=== PATIENT | male | born 1965 | race African-American/Black ===

== ENCOUNTER 2016-10-27 12:46 | Inpatient (IN) | payer MEDICAID ==
[~2016-10-27] VITALS: Ht 175.3 cm; Wt 102.1 kg
[2016-10-27 13:19] LABS: Basophils # (auto) 0 uL; Basophils % (auto) 0.6 % (0.0-2.0); DEFINITIVE VIEW TRANSMISSION; Eosinophils # (auto) 0.1 uL; Eosinophils % (auto) 1.3 % (0.0-7.0); Hematocrit 44.8 % (41.0-53.0); Hemoglobin 13.9 g/dL (13.5-17.5); Lymphocytes # (auto) 1.2 uL; Lymphocytes % (auto) 22.3 % (10.0-50.0); Mean Corpuscular Hemoglobin 28.6 pg (28.0-32.0); Mean Corpuscular Hgb Conc. 31.1 g/dL (32.0-36.0); Mean Platelet Volume 8.7 fL (7.4-10.4); Monocytes # (auto) 0.5 uL; Monocytes % (auto) 8.7 % (0.0-12.0); Neutrophils # (auto) 3.7 uL; Neutrophils % (auto) 67.1 % (37.0-80.0); Platelet Count (auto) 252 10^3/uL (140-450); Red Cell Distribution Width 14.1 % (11.6-16.0); White Blood Cell 5.6 10^3/uL (4.4-10.8)
[2016-10-27] MEDS ORDERED: ASPirin 81 mg TAB PO ONE ×2 (13:30→18:00)
[2016-10-27 13:42] LABS: Albumin 3.5 g/dL (3.4-5.0); BUN/Creatinine Ratio 10.6; Bilirubin, Total 0.7 mg/dL (0.2-1.0); Calcium 8.2 mg/dL (8.5-10.1); Magnesium 2.4 mg/dL (1.6-2.6); Potassium 3.9 mmol/L (3.5-5.1); Total Protein 6.6 g/dL (6.4-8.2)
[2016-10-27 13:52] LABS: INR 0.98 (0.9-1.15); Prothrombin Time 10.1 sec (9.37-12.3)
[2016-10-27] MEDS ORDERED: IODIXANOL 320MG/ML 100ML BTL IV ONE (14:19)
[2016-10-27 14:51] LABS: B-Type Natriuretic Peptide 480.93 pg/mL (0-100); Temperature: 21.9 C (20.0-25.0)
[2016-10-27] MEDS ORDERED: ALBUTEROL SULF 2.5 MG/0.5ML(0.5%) NEB SOLN HHN STA (16:24)
[2016-10-27] MEDS ORDERED: IPRATROPIUM BROM 0.5 MG/2.5ML INH SOL NEB ONE (16:30)
[2016-10-27] MEDS ORDERED: MORPHINE SULF INJ 2 MG/ML SYRINGE 1ML IV PRN (18:00)
[2016-10-27] MEDS ORDERED: amLODIPine BESYLATE 5 MG TAB PO ONE (18:00)
[2016-10-27] MEDS ORDERED: NITROGLYCERIN 0.4 MG SL TAB SL PRN (18:00)
[2016-10-27] MEDS ORDERED: hydrALAZINE HCL 20 MG/ML VL IV PRN (18:00)
[2016-10-27] MEDS ORDERED: FUROSEMIDE 40 MG/4 ML VIAL IV ONE (18:00)
[2016-10-27] MEDS ORDERED: ONDANSETRON HCL 4 MG/2 ML VIAL IV PRN (18:00)
[2016-10-27] MEDS ORDERED: ACETAMINOPHEN 500 MG TAB PO PRN (18:00)
[2016-10-27] MEDS: HYDROcodone-ACET 5/325MG TAB PO PRN (20:22)
[2016-10-27 21:00] VITALS: BP 114/51
[2016-10-27 21:13] VITALS: BP 114/51
[2016-10-27] MEDS ORDERED: ATORVASTATIN 20 MG TAB PO SCH (22:00)
[2016-10-27 23:40] VITALS: BP 108/59
[2016-10-28 04:47] VITALS: BP 99/64
[2016-10-28 05:39] LABS: BUN/Creatinine Ratio 12.5; Calcium 8.6 mg/dL (8.5-10.1); Potassium 3.9 mmol/L (3.5-5.1)
[2016-10-28 06:00] LABS: B-Type Natriuretic Peptide 514.08 pg/mL (0-100)
[2016-10-28 06:50] VITALS: BP 92/64
[2016-10-28 09:04] VITALS: BP 92/64
[2016-10-28] MEDS ORDERED: amLODIPine BESYLATE 5 MG TAB PO SCH (10:00)
[2016-10-28] MEDS ORDERED: ASPirin 81 mg TAB PO SCH (10:00)
[2016-10-28 10:35] LABS: Urine Bilirubin Negative (Negative); Urine Blood Negative /uL (Negative); Urine Color Yellow (Yellow); Urine Ketone Negative (Negative); Urine Nitrite Negative (Negative); Urine RBC <1 /hpf (0 - 3); Urine Squamous Epithelial Cell FEW /hpf (<5); Urine pH 6.5 (5.0-8.0)
[2016-10-28 10:38] LABS: Urine Glucose 3+ mg/dL (Normal)
[2016-10-28] MEDS ORDERED: POTASSIUM CHL 20 Meq TABLET PO ONE (12:00)
[2016-10-28] MEDS ORDERED: FUROSEMIDE 40 MG TAB PO ONE (12:00)
[2016-10-28 13:00] VITALS: BP 105/58
[2016-10-28] MEDS: HYDROcodone-ACET 5/325MG TAB PO PRN (13:40)
[2016-10-28 16:51] VITALS: BP 106/56
[2016-10-29] MEDS ORDERED: FUROSEMIDE 40 MG TAB PO SCH (10:00)
[2016-10-29] MEDS ORDERED: POTASSIUM CHL 20 Meq TABLET PO SCH (10:00)
== END 2016-10-28 17:45 | disposition left against medical advice (07) | DRG 194 ==
LOC: ER 12:50 → TELE 12:51 → TELE-CENTR 19:48
PROVIDERS: ADMIT Internal Medicine; ATTEND Internal Medicine
DX: I13.0 Hypertensive heart and chronic kidney disease with heart failure and stage 1 through stage 4 chronic kidney disease, or unspecified chronic kidney disease (principal); N18.3 Chronic kidney disease, stage 3 (moderate); F17.210 Nicotine dependence, cigarettes, uncomplicated; Z53.21 Procedure and treatment not carried out due to patient leaving prior to being seen by health care provider; I50.31 Acute diastolic (congestive) heart failure; E66.9 Obesity, unspecified; Z68.33 Body mass index [BMI] 33.0-33.9, adult
CPT/HCPCS: 36415; 36600; 71010; 71275; 80048; 80053; 80061; 81001; 82805; 82962; 83735; 83880; 84484; 85025; 85379; 85610; 85730; 93005; 94644; 94761; 96374; Q9967

== ENCOUNTER 2016-11-30 13:18 | Emergency (ER) | payer MEDICAID ==
[~2016-11-30] VITALS: Ht 175.3 cm; Wt 97.5 kg
[2016-11-30 13:49] LABS: Basophils # (auto) 0 uL; Basophils % (auto) 0.6 % (0.0-2.0); DEFINITIVE VIEW TRANSMISSION; Eosinophils # (auto) 0 uL; Eosinophils % (auto) 0.8 % (0.0-7.0); Hematocrit 44.2 % (41.0-53.0); Hemoglobin 13.7 g/dL (13.5-17.5); Lymphocytes # (auto) 0.7 uL; Lymphocytes % (auto) 12.4 % (10.0-50.0); Mean Corpuscular Hemoglobin 28.1 pg (28.0-32.0); Mean Corpuscular Hgb Conc. 30.9 g/dL (32.0-36.0); Mean Corpuscular Volume 90.9 fL (80.0-100.0); Mean Platelet Volume 8.3 fL (7.4-10.4); Monocytes # (auto) 0.8 uL; Monocytes % (auto) 14.2 % (0.0-12.0); Neutrophils # (auto) 3.9 uL; Platelet Count (auto) 242 10^3/uL (140-450); Red Cell Distribution Width 13.8 % (11.6-16.0); White Blood Cell 5.5 10^3/uL (4.4-10.8)
[2016-11-30 14:22] LABS: Albumin 3.4 g/dL (3.4-5.0); BUN/Creatinine Ratio 11.2; Bilirubin, Total 0.8 mg/dL (0.2-1.0); Calcium 8.3 mg/dL (8.5-10.1); Magnesium 2.3 mg/dL (1.6-2.6); Potassium 4.2 mmol/L (3.5-5.1)
[2016-11-30] MEDS ORDERED: ALBUTEROL SULF 2.5 MG/0.5ML(0.5%) NEB SOLN HHN STA (14:50)
[2016-11-30 15:40] VITALS: BP 124/67
== END 2016-11-30 16:40 | disposition home or self-care (01) ==
LOC: ER 13:18
DX: J20.9 Acute bronchitis, unspecified (principal); I10 Essential (primary) hypertension; F17.210 Nicotine dependence, cigarettes, uncomplicated; F12.10 Cannabis abuse, uncomplicated; Z90.89 Acquired absence of other organs
CPT/HCPCS: 36415; 71020; 80053; 83605; 83735; 84484; 85025; 93005; 94644

== ENCOUNTER 2016-12-08 07:15 | Inpatient (IN) | payer MEDICAID ==
[~2016-12-08] VITALS: Ht 175.3 cm; Wt 104.5 kg
[2016-12-08] MEDS ORDERED: cefTRIAXone 1GM/50ML D5W 50 ML IV ONE (08:45)
[2016-12-08] MEDS ORDERED: ONDANSETRON HCL 4 MG/2 ML VIAL IV ONE (08:45)
[2016-12-08] MEDS ORDERED: methylPREDNISolone SOD SUCC 125 MG/2 ML VL IV ONE (08:45)
[2016-12-08] MEDS ORDERED: IPRATROPIUM BROM 0.5 MG/2.5ML INH SOL NEB ONE (08:45)
[2016-12-08] MEDS ORDERED: ALBUTEROL SULF 2.5 MG/0.5ML(0.5%) NEB SOLN NEB ONE (08:45)
[2016-12-08] MEDS ORDERED: MORPHINE SULFATE 4 MG/ML SYRG IV ONE (08:45)
[2016-12-08 08:54] LABS: Basophils # (auto) 0.1 uL; Basophils % (auto) 1.5 % (0.0-2.0); Eosinophils # (auto) 0.1 uL; Eosinophils % (auto) 1.2 % (0.0-7.0); Hematocrit 39.6 % (41.0-53.0); Lymphocytes # (auto) 1.5 uL; Lymphocytes % (auto) 24.5 % (10.0-50.0); Mean Corpuscular Hemoglobin 28.7 pg (28.0-32.0); Mean Corpuscular Hgb Conc. 32.9 g/dL (32.0-36.0); Mean Corpuscular Volume 87.3 fL (80.0-100.0); Mean Platelet Volume 8.9 fL (7.4-10.4); Monocytes # (auto) 0.7 uL; Monocytes % (auto) 10.9 % (0.0-12.0); Neutrophils # (auto) 3.9 uL; Neutrophils % (auto) 61.9 % (37.0-80.0); Platelet Count (auto) 356 10^3/uL (140-450); Red Cell Distribution Width 13.5 % (11.6-16.0); White Blood Cell 6.2 10^3/uL (4.4-10.8)
[2016-12-08 08:55] LABS: INR 1.08 (0.9-1.15); Partial Thromboplastin Time 25.1 sec (22.64-33.71); Prothrombin Time 11.1 sec (9.37-12.3)
[2016-12-08 09:07] LABS: Albumin 3.3 g/dL (3.4-5.0); Bilirubin, Total 0.8 mg/dL (0.2-1.0); Calcium 8.1 mg/dL (8.5-10.1); Potassium 5.1 mmol/L (3.5-5.1); Total Protein 6.9 g/dL (6.4-8.2)
[2016-12-08 09:18] LABS: Magnesium 2.2 mg/dL (1.6-2.6)
[2016-12-08 09:45] LABS: Temperature: 21.2 C (20.0-25.0)
[2016-12-08] MEDS ORDERED: ASPirin 81 mg TAB PO ONE (10:15)
[2016-12-08] MEDS ORDERED: FUROSEMIDE 40 MG/4 ML VIAL IV ONE (10:15)
[2016-12-08] MEDS ORDERED: NITROGLYCERIN 0.4 MG SL TAB SL PRN (14:15)
[2016-12-08] MEDS ORDERED: MORPHINE SULF INJ 2 MG/ML SYRINGE 1ML IV PRN (14:15)
[2016-12-08] MEDS: CARVEDILOL 3.125 MG TAB PO SCH ×2 (14:35→21:33)
[2016-12-08] MEDS ORDERED: FUROSEMIDE 100 MG/10ML VIAL IV ONE (19:30)
[2016-12-08] MEDS: IPRATROPIUM BROM 0.5 MG/2.5ML INH SOL NEB SCH (19:45)
[2016-12-08] MEDS: ALBUTEROL SULF 2.5 MG/0.5ML(0.5%) NEB SOLN NEB SCH (19:45)
[2016-12-08 20:22] VITALS: BP 95/51
[2016-12-08] MEDS: ACETAMINOPHEN 325 MG TAB PO PRN (21:00)
[2016-12-08] MEDS: ATORVASTATIN 20 MG TAB PO SCH (21:32)
[2016-12-08 22:00] VITALS: BP 108/70
[2016-12-09 05:00] VITALS: BP 117/76
[2016-12-09 06:30] LABS: BUN/Creatinine Ratio 23.8; Calcium 8.4 mg/dL (8.5-10.1)
[2016-12-09] MEDS: IPRATROPIUM BROM 0.5 MG/2.5ML INH SOL NEB SCH ×3 (06:59→18:55)
[2016-12-09] MEDS: ALBUTEROL SULF 2.5 MG/0.5ML(0.5%) NEB SOLN NEB SCH ×3 (06:59→18:55)
[2016-12-09 09:00] VITALS: BP 95/68
[2016-12-09] MEDS: POTASSIUM CHL 20 Meq TABLET PO SCH (09:38)
[2016-12-09] MEDS: CARVEDILOL 3.125 MG TAB PO SCH ×2 (09:39→21:42)
[2016-12-09] MEDS: ASPirin 81 mg TAB PO SCH (09:40)
[2016-12-09] MEDS ORDERED: INFLUENZA QUAD 2016-2017 0.5 ML SYRG IM ONE (10:00)
[2016-12-09] MEDS ORDERED: PNEUMOCOCCAL VACC POLYS 25 MCG/0.5 ML VIAL IM ONE (10:00)
[2016-12-09] MEDS ORDERED: FUROSEMIDE 40 MG/4 ML VIAL IV SCH (10:00)
[2016-12-09 13:00] VITALS: BP 103/75
[2016-12-09 15:31] LABS: Urine Bilirubin Negative (Negative); Urine Blood Negative /uL (Negative); Urine Color Yellow (Yellow); Urine Glucose Normal (Normal); Urine Hyaline Cast FEW /lpf (0 - 2); Urine Ketone Negative (Negative); Urine Nitrite Negative (Negative); Urine RBC <1 /hpf (0 - 3); Urine Urobilinogen Normal (Negative)
[2016-12-09 17:00] VITALS: BP 104/62
[2016-12-09] MEDS: ATORVASTATIN 20 MG TAB PO SCH (21:41)
[2016-12-09 22:00] VITALS: BP 109/70
[2016-12-10] MEDS: ALBUTEROL SULF 2.5 MG/0.5ML(0.5%) NEB SOLN NEB SCH ×4 (00:13→18:40)
[2016-12-10] MEDS: IPRATROPIUM BROM 0.5 MG/2.5ML INH SOL NEB SCH ×4 (00:13→18:40)
[2016-12-10 05:00] VITALS: BP 111/73
[2016-12-10] MEDS: ACETAMINOPHEN 325 MG TAB PO PRN ×2 (08:25→21:35)
[2016-12-10 08:57] VITALS: BP 113/77
[2016-12-10] MEDS ORDERED: GIVE UN DILUTED IV ONE (09:15)
[2016-12-10] MEDS ORDERED: ADENOSINE IV ONE (09:15)
[2016-12-10] MEDS: FUROSEMIDE 40 MG TAB PO SCH (11:14)
[2016-12-10] MEDS: ASPirin 81 mg TAB PO SCH (11:14)
[2016-12-10] MEDS: CARVEDILOL 3.125 MG TAB PO SCH ×2 (11:14→21:36)
[2016-12-10] MEDS: POTASSIUM CHL 20 Meq TABLET PO SCH (11:14)
[2016-12-10 13:00] VITALS: BP 111/73
[2016-12-10 17:15] VITALS: BP 123/73
[2016-12-10 21:10] VITALS: BP 111/78
[2016-12-10] MEDS: ATORVASTATIN 20 MG TAB PO SCH (21:36)
[2016-12-10] MEDS: ACETYLCYSTEINE ORAL for CIN 20%(200MG/ML) 4ML PO SCH (22:32)
[2016-12-11 05:23] VITALS: BP 117/81
[2016-12-11] MEDS: SODIUM BICARBONATE 50ML VIAL 150 ML in D5W 5% 1,000 ML IV SCH ×2 (05:30→08:06)
[2016-12-11] MEDS: ALBUTEROL SULF 2.5 MG/0.5ML(0.5%) NEB SOLN NEB SCH ×2 (07:17→13:44)
[2016-12-11] MEDS: IPRATROPIUM BROM 0.5 MG/2.5ML INH SOL NEB SCH ×2 (07:17→13:44)
[2016-12-11 09:29] VITALS: BP 93/54
[2016-12-11] MEDS: ACETYLCYSTEINE ORAL for CIN 20%(200MG/ML) 4ML PO SCH (10:00)
[2016-12-11] MEDS: FUROSEMIDE 40 MG TAB PO SCH (10:00)
[2016-12-11] MEDS: CARVEDILOL 3.125 MG TAB PO SCH (10:00)
[2016-12-11] MEDS: ASPirin 81 mg TAB PO SCH (10:00)
[2016-12-11] MEDS: POTASSIUM CHL 20 Meq TABLET PO SCH (10:00)
[2016-12-11] MEDS ORDERED: LIDOCAINE 2%HCL (LOCAL ANESTH.) INJ 20ML MDV ONE (10:51)
[2016-12-11] MEDS ORDERED: ANGIOMAX 250 MG VIAL IV ONE (11:05)
[2016-12-11] MEDS ORDERED: MIDAZOLAM HCL 1MG/1ML-2 ML VIAL ONE (11:06)
[2016-12-11] MEDS ORDERED: fentaNYL CITRATE 100 MCG/2 ML VL ONE (11:06)
[2016-12-11] MEDS ORDERED: EPTIFIBATIDE INJ (2MG/ML) 10ML VIAL IV ONE (11:06)
[2016-12-11] MEDS ORDERED: SODIUM CHL 0.9% 0 ML ONE (11:06)
[2016-12-11] MEDS ORDERED: SODIUM CHLORIDE 0.9% 1,000 ML IV SCH (12:06)
[2016-12-11 13:00] VITALS: BP 139/98
[2016-12-11 15:52] VITALS: BP 107/70
== END 2016-12-11 16:42 | disposition home or self-care (01) | DRG 191 ==
LOC: ER 07:15 → TELE 07:16 → TELE-E-ADS 17:32 → TELE-CENTR 18:12
PROVIDERS: ADMIT Internal Medicine; ATTEND Internal Medicine
PROC: B2111ZZ Fluoroscopy of Multiple Coronary Arteries using Low Osmolar Contrast (ICD-10-PCS; principal; 2016-12-11)
PROC: 4A023N7 Measurement of Cardiac Sampling and Pressure, Left Heart, Percutaneous Approach (ICD-10-PCS; 2016-12-11)
PROC: B41F1ZZ Fluoroscopy of Right Lower Extremity Arteries using Low Osmolar Contrast (ICD-10-PCS; 2016-12-11)
DX: I50.43 Acute on chronic combined systolic (congestive) and diastolic (congestive) heart failure (principal); J44.0 Chronic obstructive pulmonary disease with (acute) lower respiratory infection; I42.9 Cardiomyopathy, unspecified; I15.9 Secondary hypertension, unspecified; J20.9 Acute bronchitis, unspecified; F17.210 Nicotine dependence, cigarettes, uncomplicated; E78.00 Pure hypercholesterolemia, unspecified; E66.01 Morbid (severe) obesity due to excess calories; N18.9 Chronic kidney disease, unspecified; I13.0 Hypertensive heart and chronic kidney disease with heart failure and stage 1 through stage 4 chronic kidney disease, or unspecified chronic kidney disease; J44.1 Chronic obstructive pulmonary disease with (acute) exacerbation; I25.10 Atherosclerotic heart disease of native coronary artery without angina pectoris; Z91.19 Patient's noncompliance with other medical treatment and regimen; Z68.34 Body mass index [BMI] 34.0-34.9, adult; Z90.89 Acquired absence of other organs; Z82.49 Family history of ischemic heart disease and other diseases of the circulatory system; Z23 Encounter for immunization
CPT/HCPCS: 93458; 96365; 96375; 99291; G0278; 36415; 71020; 76775; 78452; 80048; 80053; 81001; 83735; 83880; 84484; 85025; 85610; 85730; 87040; 87070; 87205; 93005; 93017; 93306; 94640; J0153; J0696; J2250; J2405

== ENCOUNTER 2017-11-28 14:23 | Inpatient (IN) | payer MEDICAID ==
[~2017-11-28] VITALS: Ht 175.3 cm; Wt 98.1 kg
[2017-11-28 15:21] LABS: Basophils # (auto) 0.1 uL; Eosinophils # (auto) 0 uL; Eosinophils % (auto) 0.8 % (0.0-7.0); Hematocrit 44.3 % (41.0-53.0); Hemoglobin 14.2 g/dL (13.5-17.5); Lymphocytes # (auto) 1.2 uL; Lymphocytes % (auto) 22.1 % (10.0-50.0); Mean Corpuscular Hemoglobin 29.5 pg (28.0-32.0); Mean Corpuscular Volume 92.1 fL (80.0-100.0); Monocytes # (auto) 0.6 uL; Monocytes % (auto) 10.2 % (0.0-12.0); Neutrophils # (auto) 3.6 uL; Neutrophils % (auto) 65.9 % (37.0-80.0); Nucleated Red Blood Cells % 0.2 %; Platelet Count (auto) 269 10^3/uL (140-450); Red Blood Cells 4.81 10^6/uL (4.5-5.90); Red Cell Distribution Width 14.3 % (11.8-14.3); White Blood Cell 5.5 10^3/uL (4.4-10.8)
[2017-11-28 15:41] LABS: Albumin 3.4 g/dL (3.4-5.0); BUN/Creatinine Ratio 12.1; Bilirubin, Total 1.1 mg/dL (0.2-1.0); Calcium 8.3 mg/dL (8.5-10.1); Magnesium 2.5 mg/dL (1.6-2.6); Potassium 4.4 mmol/L (3.5-5.1); Total Protein 6.9 g/dL (6.4-8.2)
[2017-11-28] MEDS ORDERED: ALBUTEROL SULF 2.5 MG/0.5ML(0.5%) NEB SOLN HHN STA (19:43)
[2017-11-28] MEDS ORDERED: IPRATROPIUM BROM 0.5 MG/2.5ML INH SOL NEB ONE (19:45)
[2017-11-28] MEDS ORDERED: ASPirin-EC 325mg tab PO ONE (19:45)
[2017-11-28] MEDS ORDERED: ASPirin 325 MG TAB ONE (19:46)
[2017-11-29] MEDS ORDERED: MORPHINE SULFATE 4 MG/ML SYR/VIAL IV ONE (02:15)
[2017-11-29] MEDS ORDERED: ONDANSETRON HCL 4 MG/2 ML VIAL IV ONE (02:15)
[2017-11-29 02:58] LABS: INR 1.05 (0.9-1.15); Partial Thromboplastin Time 24.7 sec (22.64-33.71); Prothrombin Time 11.4 sec (9.37-12.3)
[2017-11-29] MEDS ORDERED: NITROGLYCERIN 0.4 MG SL TAB SL PRN (03:45)
[2017-11-29] MEDS ORDERED: MORPHINE SULFATE 4 MG/ML SYR/VIAL IV PRN (03:45)
[2017-11-29] MEDS ORDERED: FUROSEMIDE 40 MG/4 ML VIAL IV ONE ×2 (04:00→12:15)
[2017-11-29] MEDS ORDERED: ACETAMINOPHEN 500 MG TAB PO PRN (04:00)
[2017-11-29] MEDS ORDERED: ONDANSETRON HCL 4 MG/2 ML VIAL IV PRN (04:00)
[2017-11-29 04:40] LABS: Urine Bacteria NONE SEEN /hpf (None Seen); Urine Blood Negative /uL (Negative); Urine Specific Gravity 1.012 (1.001-1.035); Urine WBC 4 /hpf (0 - 3)
[2017-11-29 05:17] LABS: Basophils # (auto) 0.1 uL; Basophils % (auto) 1.1 % (0.0-2.0); Eosinophils # (auto) 0.1 uL; Eosinophils % (auto) 1.2 % (0.0-7.0); Hemoglobin 13.6 g/dL (13.5-17.5); Lymphocytes # (auto) 1.3 uL; Lymphocytes % (auto) 28.2 % (10.0-50.0); Mean Corpuscular Hemoglobin 29.7 pg (28.0-32.0); Mean Corpuscular Hgb Conc. 32.5 g/dL (32.0-36.0); Mean Corpuscular Volume 91.4 fL (80.0-100.0); Monocytes # (auto) 0.5 uL; Neutrophils # (auto) 2.7 uL; Neutrophils % (auto) 58.5 % (37.0-80.0); Nucleated Red Blood Cells % 0.2 %; Platelet Count (auto) 237 10^3/uL (140-450); Red Cell Distribution Width 14.4 % (11.8-14.3); White Blood Cell 4.7 10^3/uL (4.4-10.8)
[2017-11-29 05:45] LABS: BUN/Creatinine Ratio 14.1; Calcium 8.3 mg/dL (8.5-10.1); Potassium 4.5 mmol/L (3.5-5.1)
[2017-11-29] MEDS ORDERED: METOPROLOL TARTRATE 50 MG TAB ONE (05:59)
[2017-11-29 06:07] LABS: Cholesterol 114 mg/dL (< 200); HDL Cholesterol 39 mg/dL (40-59); LDL Cholesterol 74 mg/dL (< 100); Triglycerides 78 mg/dL (< 150)
[2017-11-29] MEDS ORDERED: METOPROLOL TARTRATE 50 MG TAB PO SCH (10:00)
[2017-11-29] MEDS ORDERED: FUROSEMIDE 40 MG/4 ML VIAL IV SCH ×2 (10:00→22:00)
[2017-11-29 10:09] VITALS: BP 112/79
[2017-11-29 10:42] VITALS: BP 112/79
[2017-11-29] MEDS: ASPirin-EC 81 mg tab PO SCH (10:48)
[2017-11-29] MEDS: POTASSIUM CHL 10 Meq TABLET PO SCH (10:48)
[2017-11-29 13:00] VITALS: BP 103/68
[2017-11-29] MEDS: HYDROcodone-ACET 5/325MG TAB PO PRN (15:04)
[2017-11-29] MEDS ORDERED: RAMIPRIL 2.5 MG CAP PO ONE (15:56)
[2017-11-29] MEDS ORDERED: IOHEXOL 350 MG/ML 100ML IJ ONE (16:53)
[2017-11-29 17:00] VITALS: BP 100/76
[2017-11-29 22:00] VITALS: BP 119/69
[2017-11-29] MEDS: ATORVASTATIN 20 MG TAB PO SCH (22:13)
[2017-11-29] MEDS: METOPROLOL TARTRATE 25 MG TAB PO SCH (22:13)
[2017-11-29] MEDS ORDERED: LACTULOSE 20Gm/30ML SOLN PO ONE (22:30)
[2017-11-30] VITALS (7 sets, daily range): BP systolic 104–129; BP diastolic 58–87
[2017-11-30 07:21] LABS: Basophils # (auto) 0 uL; Eosinophils # (auto) 0.1 uL; Eosinophils % (auto) 1.5 % (0.0-7.0); Hematocrit 42.3 % (41.0-53.0); Hemoglobin 13.9 g/dL (13.5-17.5); Lymphocytes # (auto) 1.3 uL; Lymphocytes % (auto) 24.7 % (10.0-50.0); Mean Corpuscular Volume 91.1 fL (80.0-100.0); Monocytes # (auto) 0.6 uL; Monocytes % (auto) 12.3 % (0.0-12.0); Neutrophils # (auto) 3.1 uL; Neutrophils % (auto) 60.5 % (37.0-80.0); Nucleated Red Blood Cells % 0.1 %; Platelet Count (auto) 241 10^3/uL (140-450); Red Blood Cells 4.64 10^6/uL (4.5-5.90); Red Cell Distribution Width 14.1 % (11.8-14.3); White Blood Cell 5.1 10^3/uL (4.4-10.8)
[2017-11-30 07:32] LABS: BUN/Creatinine Ratio 21.4; Calcium 8.8 mg/dL (8.5-10.1)
[2017-11-30] MEDS ORDERED: ADENOSINE 81 MG in GIVE UN-DILUTED 0 ML IV STA (12:11)
[2017-11-30] MEDS: POTASSIUM CHL 10 Meq TABLET PO SCH (14:58)
[2017-11-30] MEDS: ASPirin-EC 81 mg tab PO SCH (15:00)
[2017-11-30] MEDS: METOPROLOL TARTRATE 25 MG TAB PO SCH ×2 (15:03→21:53)
[2017-11-30] MEDS: RAMIPRIL 2.5 MG CAP PO SCH (15:19)
[2017-11-30] MEDS: FUROSEMIDE 20 MG TAB PO SCH (19:26)
[2017-11-30] MEDS: LACTULOSE 20Gm/30ML SOLN PO PRN (19:59)
[2017-11-30] MEDS: HYDROcodone-ACET 5/325MG TAB PO PRN (19:59)
[2017-11-30] MEDS: CARVEDILOL 3.125 MG TAB PO SCH (21:52)
[2017-11-30] MEDS: ATORVASTATIN 20 MG TAB PO SCH (21:53)
[2017-12-01] MEDS: FUROSEMIDE 20 MG TAB PO SCH ×2 (05:38→17:09)
[2017-12-01 05:47] VITALS: BP 97/68
[2017-12-01 05:52] LABS: Basophils # (auto) 0 uL; Basophils % (auto) 1.1 % (0.0-2.0); Eosinophils # (auto) 0.1 uL; Eosinophils % (auto) 1.9 % (0.0-7.0); Hematocrit 43.9 % (41.0-53.0); Hemoglobin 14.6 g/dL (13.5-17.5); Lymphocytes # (auto) 1.1 uL; Lymphocytes % (auto) 29.4 % (10.0-50.0); Mean Corpuscular Hemoglobin 30.1 pg (28.0-32.0); Mean Corpuscular Hgb Conc. 33.2 g/dL (32.0-36.0); Mean Corpuscular Volume 90.7 fL (80.0-100.0); Monocytes # (auto) 0.5 uL; Neutrophils % (auto) 53.6 % (37.0-80.0); Nucleated Red Blood Cells % 0.1 %; Platelet Count (auto) 239 10^3/uL (140-450); Red Blood Cells 4.84 10^6/uL (4.5-5.90); White Blood Cell 3.7 10^3/uL (4.4-10.8)
[2017-12-01 06:22] LABS: BUN/Creatinine Ratio 22.3; Calcium 8.4 mg/dL (8.5-10.1); Potassium 3.9 mmol/L (3.5-5.1)
[2017-12-01 09:00] VITALS: BP 98/66
[2017-12-01] MEDS ORDERED: [UNRECOGNIZED DRUG - CODE] PO (09:09)
[2017-12-01] MEDS ORDERED: FUR20T PO (09:09)
[2017-12-01] MEDS ORDERED: CAR3125T PO (09:09)
[2017-12-01] MEDS: CARVEDILOL 3.125 MG TAB PO SCH ×2 (09:53→22:22)
[2017-12-01] MEDS: ASPirin-EC 81 mg tab PO SCH (09:53)
[2017-12-01] MEDS: POTASSIUM CHL 10 Meq TABLET PO SCH (09:54)
[2017-12-01] MEDS: RAMIPRIL 2.5 MG CAP PO SCH (12:40)
[2017-12-01 13:00] VITALS: BP 118/70
[2017-12-01 17:00] VITALS: BP_SYST 109; BP_SYST 111; BP_DIAS 68; BP_DIAS 79
[2017-12-01] MEDS: LACTULOSE 20Gm/30ML SOLN PO PRN (17:09)
[2017-12-01] MEDS: HYDROcodone-ACET 5/325MG TAB PO PRN (17:16)
[2017-12-01] MEDS ORDERED: FLEET MINERAL OIL ENEMA 133 ML PR ONE (17:30)
[2017-12-01] MEDS ORDERED: FLEET ENEMA(ADULT) 135 ML PR ONE (18:00)
[2017-12-01 20:00] VITALS: BP 121/77
[2017-12-01] MEDS: MORPHINE SULFATE 4 MG/ML SYR/VIAL IV PRN (21:23)
[2017-12-01 22:00] VITALS: BP 121/77
[2017-12-01] MEDS: ATORVASTATIN 20 MG TAB PO SCH (22:21)
[2017-12-02 05:20] LABS: Basophils # (auto) 0.1 uL; Basophils % (auto) 1.3 % (0.0-2.0); Eosinophils # (auto) 0.1 uL; Eosinophils % (auto) 2.3 % (0.0-7.0); Hematocrit 46.1 % (41.0-53.0); Hemoglobin 15.1 g/dL (13.5-17.5); Lymphocytes # (auto) 1.4 uL; Lymphocytes % (auto) 32.3 % (10.0-50.0); Mean Corpuscular Hemoglobin 30.2 pg (28.0-32.0); Mean Corpuscular Hgb Conc. 32.7 g/dL (32.0-36.0); Mean Corpuscular Volume 92.1 fL (80.0-100.0); Monocytes # (auto) 0.6 uL; Monocytes % (auto) 14.7 % (0.0-12.0); Neutrophils # (auto) 2.1 uL; Neutrophils % (auto) 49.4 % (37.0-80.0); Platelet Count (auto) 234 10^3/uL (140-450); Red Blood Cells 5.01 10^6/uL (4.5-5.90); White Blood Cell 4.2 10^3/uL (4.4-10.8)
[2017-12-02 05:40] LABS: BUN/Creatinine Ratio 20.7; Calcium 8.6 mg/dL (8.5-10.1); Potassium 3.8 mmol/L (3.5-5.1)
[2017-12-02 05:50] VITALS: BP 108/83
[2017-12-02] MEDS: FUROSEMIDE 20 MG TAB PO SCH (06:21)
[2017-12-02 09:00] VITALS: BP 85/58
[2017-12-02] MEDS: ASPirin-EC 81 mg tab PO SCH (09:01)
[2017-12-02] MEDS: POTASSIUM CHL 10 Meq TABLET PO SCH (09:01)
[2017-12-02] MEDS: CARVEDILOL 3.125 MG TAB PO SCH (09:02)
[2017-12-02] MEDS: RAMIPRIL 2.5 MG CAP PO SCH (09:02)
[2017-12-02] MEDS: MORPHINE SULFATE 4 MG/ML SYR/VIAL IV PRN (11:23)
[2017-12-10] MEDS ORDERED: CAR3125T PO (10:05)
[2017-12-10] MEDS ORDERED: [UNRECOGNIZED DRUG - CODE] PO (10:05)
[2017-12-10] MEDS ORDERED: HYDR-4683 PO (10:05)
== END 2017-12-02 12:30 | disposition left against medical advice (07) | DRG 194 ==
LOC: ER 14:36 → TELE 14:37 → TELE-WESTW 11-29 09:33
PROVIDERS: ADMIT Nurse Practitioner Family; ATTEND Internal Medicine
DX: I11.0 Hypertensive heart disease with heart failure (principal); I42.9 Cardiomyopathy, unspecified; J44.1 Chronic obstructive pulmonary disease with (acute) exacerbation; Z95.1 Presence of aortocoronary bypass graft; I50.23 Acute on chronic systolic (congestive) heart failure; R79.1 Abnormal coagulation profile; E66.9 Obesity, unspecified; Z68.31 Body mass index [BMI] 31.0-31.9, adult; E78.5 Hyperlipidemia, unspecified; F17.210 Nicotine dependence, cigarettes, uncomplicated; I25.10 Atherosclerotic heart disease of native coronary artery without angina pectoris; I70.0 Atherosclerosis of aorta; Z82.3 Family history of stroke; Z82.49 Family history of ischemic heart disease and other diseases of the circulatory system; Z95.5 Presence of coronary angioplasty implant and graft
CPT/HCPCS: 36415; 71046; 71275; 80048; 80053; 80061; 81001; 83735; 83880; 84484; 85025; 85379; 85610; 85730; 93005; 93017; 93306; 94640; 96374; 96375; J0153; J2405

== ENCOUNTER 2017-12-04 17:28 | Inpatient (IN) | payer MEDICAID ==
[~2017-12-04] VITALS: Ht 175.3 cm; Wt 99.0 kg
[~2017-12-04 17:28] MED LIST: CAR3125T PO; FUR20T PO; [UNRECOGNIZED DRUG - CODE] PO
[2017-12-04 19:19] LABS: Albumin 3.5 g/dL (3.4-5.0); BUN/Creatinine Ratio 13.4; Bilirubin, Total 0.8 mg/dL (0.2-1.0); Calcium 7.9 mg/dL (8.5-10.1); Magnesium 2.6 mg/dL (1.6-2.6); Potassium 4.5 mmol/L (3.5-5.1); Total Protein 7.1 g/dL (6.4-8.2)
[2017-12-04 19:25] LABS: Basophils # (auto) 0 uL; Eosinophils # (auto) 0.1 uL; Eosinophils % (auto) 1.6 % (0.0-7.0); Hematocrit 45.6 % (41.0-53.0); Hemoglobin 14.6 g/dL (13.5-17.5); Lymphocytes # (auto) 1.5 uL; Lymphocytes % (auto) 30.6 % (10.0-50.0); Mean Corpuscular Hemoglobin 29.5 pg (28.0-32.0); Mean Corpuscular Hgb Conc. 32.1 g/dL (32.0-36.0); Monocytes # (auto) 0.7 uL; Monocytes % (auto) 14.1 % (0.0-12.0); Neutrophils # (auto) 2.6 uL; Neutrophils % (auto) 52.7 % (37.0-80.0); Nucleated Red Blood Cells % 0.8 %; Platelet Count (auto) 288 10^3/uL (140-450); Red Blood Cells 4.95 10^6/uL (4.5-5.90); Red Cell Distribution Width 13.9 % (11.8-14.3); White Blood Cell 4.9 10^3/uL (4.4-10.8)
[2017-12-05] MEDS ORDERED: MORPHINE SULFATE 4 MG/ML SYR/VIAL IV ONE (01:30)
[2017-12-05] MEDS ORDERED: ONDANSETRON HCL 4 MG/2 ML VIAL IV ONE (01:30)
[2017-12-05 05:59] LABS: INR 0.95 (0.9-1.15); Prothrombin Time 10.4 sec (9.37-12.3)
[2017-12-05] MEDS ORDERED: MORPHINE SULFATE 4 MG/ML SYR/VIAL IV PRN (06:15)
[2017-12-05] MEDS ORDERED: ONDANSETRON HCL 4 MG/2 ML VIAL IV PRN (06:15)
[2017-12-05] MEDS ORDERED: NITROGLYCERIN 0.4 MG SL TAB SL PRN (06:15)
[2017-12-05] MEDS ORDERED: ACETAMINOPHEN 325 MG TAB PO PRN (06:15)
[2017-12-05 08:00] VITALS: BP 124/66
[2017-12-05 09:00] VITALS: BP 100/67
[2017-12-05] MEDS: RAMIPRIL 2.5 MG CAP PO SCH (10:00)
[2017-12-05] MEDS: FAMOTIDINE 20 MG TAB PO SCH ×2 (10:24→22:13)
[2017-12-05] MEDS: ENOXAPARIN SOD 40 MG/0.4 ML SYRINGE SC SCH (10:24)
[2017-12-05] MEDS: ASPirin 81 mg TAB PO SCH (10:24)
[2017-12-05] MEDS: CARVEDILOL 3.125 MG TAB PO SCH ×2 (10:25→22:00)
[2017-12-05] MEDS: HYDROcodone-ACET 5/325MG TAB PO PRN ×3 (10:26→22:13)
[2017-12-05 13:00] VITALS: BP 102/66
[2017-12-05 17:00] VITALS: BP 114/65
[2017-12-05] MEDS: FUROSEMIDE 20 MG TAB PO SCH (17:38)
[2017-12-05 18:10] LABS: Urine Bacteria NONE SEEN /hpf (None Seen); Urine Blood Negative /uL (Negative); Urine Specific Gravity 1.028 (1.001-1.035); Urine WBC 4 /hpf (0 - 3)
[2017-12-05] MEDS ORDERED: LACTULOSE 20Gm/30ML SOLN PO ONE (18:30)
[2017-12-05 20:00] VITALS: BP 105/70
[2017-12-06] VITALS (7 sets, daily range): BP systolic 96–118; BP diastolic 67–77
[2017-12-06] MEDS: FUROSEMIDE 20 MG TAB PO SCH ×2 (06:00→17:30)
[2017-12-06 06:47] LABS: Basophils # (auto) 0.1 uL; Eosinophils # (auto) 0.1 uL; Eosinophils % (auto) 3.2 % (0.0-7.0); Hematocrit 39.9 % (41.0-53.0); Hemoglobin 12.8 g/dL (13.5-17.5); Lymphocytes # (auto) 1.5 uL; Lymphocytes % (auto) 43.5 % (10.0-50.0); Mean Corpuscular Hemoglobin 29.6 pg (28.0-32.0); Mean Corpuscular Hgb Conc. 32.2 g/dL (32.0-36.0); Mean Corpuscular Volume 91.9 fL (80.0-100.0); Monocytes # (auto) 0.5 uL; Monocytes % (auto) 15.4 % (0.0-12.0); Neutrophils # (auto) 1.2 uL; Neutrophils % (auto) 35.9 % (37.0-80.0); Nucleated Red Blood Cells % 0.2 %; Platelet Count (auto) 209 10^3/uL (140-450); Red Blood Cells 4.34 10^6/uL (4.5-5.90); Red Cell Distribution Width 13.8 % (11.8-14.3); White Blood Cell 3.5 10^3/uL (4.4-10.8)
[2017-12-06 07:01] LABS: BUN/Creatinine Ratio 18.7; Calcium 7.9 mg/dL (8.5-10.1); Potassium 4.3 mmol/L (3.5-5.1)
[2017-12-06 07:23] LABS: Bilirubin, Total 0.9 mg/dL (0.2-1.0); Total Protein 5.6 g/dL (6.4-8.2)
[2017-12-06] MEDS ORDERED: IOHEXOL 350 MG/ML 100ML IJ ONE (07:36)
[2017-12-06] MEDS ORDERED: LIDOCAINE 2%HCL (LOCAL ANESTH.) INJ 20ML MDV ONE (07:36)
[2017-12-06] MEDS ORDERED: fentaNYL CITRATE 100 MCG/2 ML VL ONE (07:58)
[2017-12-06] MEDS ORDERED: ANGIOMAX 250 MG VIAL IV ONE (07:58)
[2017-12-06] MEDS ORDERED: MIDAZOLAM HCL 1MG/1ML-2 ML VIAL ONE (07:59)
[2017-12-06] MEDS ORDERED: SODIUM CHL 0.9% 0 ML ONE (07:59)
[2017-12-06] MEDS: ENOXAPARIN SOD 40 MG/0.4 ML SYRINGE SC SCH (09:43)
[2017-12-06] MEDS: HYDROcodone-ACET 5/325MG TAB PO PRN ×2 (09:44→15:06)
[2017-12-06] MEDS: FAMOTIDINE 20 MG TAB PO SCH ×2 (09:44→21:48)
[2017-12-06] MEDS: ASPirin 81 mg TAB PO SCH (09:44)
[2017-12-06] MEDS: RAMIPRIL 2.5 MG CAP PO SCH (09:45)
[2017-12-06] MEDS: CARVEDILOL 3.125 MG TAB PO SCH ×2 (09:45→23:14)
[2017-12-06] MEDS: LACTULOSE 20Gm/30ML SOLN PO PRN (15:07)
[2017-12-06] MEDS: MAGNESIUM OXIDE 400 MG TAB PO SCH (21:48)
[2017-12-07 04:56] VITALS: BP 94/69
[2017-12-07] MEDS: FUROSEMIDE 20 MG TAB PO SCH ×2 (05:31→18:30)
[2017-12-07 09:00] VITALS: BP 86/53
[2017-12-07] MEDS: RAMIPRIL 2.5 MG CAP PO SCH (10:00)
[2017-12-07] MEDS: CARVEDILOL 3.125 MG TAB PO SCH ×2 (10:00→21:50)
[2017-12-07] MEDS: MAGNESIUM OXIDE 400 MG TAB PO SCH ×2 (10:00→21:49)
[2017-12-07] MEDS: ASPirin 81 mg TAB PO SCH (10:58)
[2017-12-07] MEDS: FAMOTIDINE 20 MG TAB PO SCH ×2 (11:04→21:49)
[2017-12-07] MEDS: ENOXAPARIN SOD 40 MG/0.4 ML SYRINGE SC SCH (11:04)
[2017-12-07 13:00] VITALS: BP 101/68
[2017-12-07 16:34] VITALS: BP 105/68
[2017-12-07 21:47] VITALS: BP 127/76
[2017-12-08 05:01] VITALS: BP 94/66
[2017-12-08] MEDS: FUROSEMIDE 20 MG TAB PO SCH ×2 (05:30→18:35)
[2017-12-08] MEDS: HYDROcodone-ACET 5/325MG TAB PO PRN ×2 (06:53→20:40)
[2017-12-08 09:45] VITALS: BP 107/64
[2017-12-08] MEDS: ENOXAPARIN SOD 40 MG/0.4 ML SYRINGE SC SCH (10:00)
[2017-12-08] MEDS: CARVEDILOL 3.125 MG TAB PO SCH ×2 (10:00→22:00)
[2017-12-08] MEDS: RAMIPRIL 2.5 MG CAP PO SCH (10:00)
[2017-12-08] MEDS: ASPirin 81 mg TAB PO SCH (10:00)
[2017-12-08] MEDS: MAGNESIUM OXIDE 400 MG TAB PO SCH ×2 (10:00→21:59)
[2017-12-08] MEDS: FAMOTIDINE 20 MG TAB PO SCH ×2 (10:00→22:00)
[2017-12-08 13:00] VITALS: BP 101/70
[2017-12-08] MEDS ORDERED: VANCOMYCIN HCL 1000 MG VL ONE (13:34)
[2017-12-08] MEDS ORDERED: VANCOMYCIN 1GM/250ML 0 ML IV ONE (13:35)
[2017-12-08] MEDS ORDERED: ceFAZolin 1GM/50ML 50 ML IV ONE (13:35)
[2017-12-08 16:15] VITALS: BP 111/58
[2017-12-08] MEDS: TEMAZEPAM 15 MG CAP PO PRN (21:57)
[2017-12-08] MEDS: LACTULOSE 20Gm/30ML SOLN PO PRN (21:58)
[2017-12-08 22:00] VITALS: BP 105/70
[2017-12-09] MEDS: HYDROcodone-ACET 5/325MG TAB PO PRN ×3 (03:30→20:38)
[2017-12-09 05:30] VITALS: BP 93/68
[2017-12-09] MEDS: FUROSEMIDE 20 MG TAB PO SCH ×2 (06:00→18:13)
[2017-12-09 07:35] LABS: Basophils # (auto) 0.1 uL; Basophils % (auto) 1.3 % (0.0-2.0); Eosinophils # (auto) 0.1 uL; Eosinophils % (auto) 1.8 % (0.0-7.0); Hematocrit 44.7 % (41.0-53.0); Hemoglobin 14.5 g/dL (13.5-17.5); Lymphocytes # (auto) 1.6 uL; Lymphocytes % (auto) 40.5 % (10.0-50.0); Mean Corpuscular Hemoglobin 29.7 pg (28.0-32.0); Mean Corpuscular Hgb Conc. 32.4 g/dL (32.0-36.0); Mean Corpuscular Volume 91.5 fL (80.0-100.0); Monocytes # (auto) 0.6 uL; Monocytes % (auto) 14.6 % (0.0-12.0); Neutrophils # (auto) 1.6 uL; Neutrophils % (auto) 41.8 % (37.0-80.0); Nucleated Red Blood Cells % 0.1 %; Platelet Count (auto) 257 10^3/uL (140-450); Red Blood Cells 4.89 10^6/uL (4.5-5.90); Red Cell Distribution Width 13.3 % (11.8-14.3); White Blood Cell 3.9 10^3/uL (4.4-10.8)
[2017-12-09] MEDS ORDERED: ceFAZolin 1GM/50ML 50 ML IV ONE (07:45)
[2017-12-09 07:50] LABS: Albumin 3.3 g/dL (3.4-5.0); Bilirubin, Total 0.8 mg/dL (0.2-1.0); Calcium 8.5 mg/dL (8.5-10.1); Potassium 4.5 mmol/L (3.5-5.1); Total Protein 6.7 g/dL (6.4-8.2)
[2017-12-09] MEDS ORDERED: LIDOCAINE 2%HCL (LOCAL ANESTH.) INJ 20ML MDV ONE ×3 (08:07→09:06)
[2017-12-09] MEDS ORDERED: IOHEXOL 350 MG/ML 100ML IJ ONE ×2 (08:07→08:46)
[2017-12-09] MEDS ORDERED: fentaNYL CITRATE 100 MCG/2 ML VL ONE (08:18)
[2017-12-09] MEDS ORDERED: MIDAZOLAM HCL 1MG/1ML-2 ML VIAL ONE (08:18)
[2017-12-09] MEDS ORDERED: VANCOMYCIN HCL 1000 MG VL ONE (08:18)
[2017-12-09] MEDS ORDERED: VANCOMYCIN 1GM/250ML 250 ML IV ONE (08:18)
[2017-12-09] MEDS ORDERED: ATROPINE SULF 0.5 MG/5ML SYR ONE (08:19)
[2017-12-09] MEDS ORDERED: HYDROmorphone HCL 2 MG/ML VL ONE (09:02)
[2017-12-09 09:10] VITALS: BP 109/64
[2017-12-09] MEDS ORDERED: FUROSEMIDE 20 MG/2 ML VIAL ONE (09:54)
[2017-12-09] MEDS: ASPirin 81 mg TAB PO SCH (10:00)
[2017-12-09] MEDS: ENOXAPARIN SOD 40 MG/0.4 ML SYRINGE SC SCH (10:00)
[2017-12-09] MEDS: MAGNESIUM OXIDE 400 MG TAB PO SCH ×2 (11:59→22:11)
[2017-12-09] MEDS: FAMOTIDINE 20 MG TAB PO SCH ×2 (11:59→22:11)
[2017-12-09] MEDS: CARVEDILOL 3.125 MG TAB PO SCH ×2 (12:04→22:17)
[2017-12-09] MEDS: RAMIPRIL 2.5 MG CAP PO SCH (12:05)
[2017-12-09 16:32] VITALS: BP 103/65
[2017-12-09 21:30] VITALS: BP 102/73
[2017-12-09] MEDS: TEMAZEPAM 15 MG CAP PO PRN (22:10)
[2017-12-10] MEDS: HYDROcodone-ACET 5/325MG TAB PO PRN ×2 (03:10→08:59)
[2017-12-10 05:00] VITALS: BP 91/54
[2017-12-10] MEDS: FUROSEMIDE 20 MG TAB PO SCH (05:37)
[2017-12-10 07:17] LABS: Basophils # (auto) 0.1 uL; Basophils % (auto) 1.1 % (0.0-2.0); Eosinophils # (auto) 0 uL; Eosinophils % (auto) 0.7 % (0.0-7.0); Hematocrit 43.4 % (41.0-53.0); Hemoglobin 14.3 g/dL (13.5-17.5); Lymphocytes # (auto) 1.6 uL; Lymphocytes % (auto) 26.6 % (10.0-50.0); Mean Corpuscular Hemoglobin 29.9 pg (28.0-32.0); Mean Corpuscular Hgb Conc. 32.8 g/dL (32.0-36.0); Mean Corpuscular Volume 91.1 fL (80.0-100.0); Monocytes # (auto) 0.8 uL; Monocytes % (auto) 14.1 % (0.0-12.0); Neutrophils # (auto) 3.4 uL; Neutrophils % (auto) 57.5 % (37.0-80.0); Platelet Count (auto) 232 10^3/uL (140-450); Red Blood Cells 4.76 10^6/uL (4.5-5.90); Red Cell Distribution Width 13.5 % (11.8-14.3); White Blood Cell 5.8 10^3/uL (4.4-10.8)
[2017-12-10 07:36] LABS: BUN/Creatinine Ratio 26.3; Calcium 8.2 mg/dL (8.5-10.1); Magnesium 2.6 mg/dL (1.6-2.6); Potassium 4.6 mmol/L (3.5-5.1)
[2017-12-10] MEDS: ENOXAPARIN SOD 40 MG/0.4 ML SYRINGE SC SCH (08:07)
[2017-12-10 08:35] VITALS: BP 106/80
[2017-12-10] MEDS: RAMIPRIL 2.5 MG CAP PO SCH (09:42)
[2017-12-10] MEDS: CARVEDILOL 3.125 MG TAB PO SCH (09:42)
[2017-12-10] MEDS: FAMOTIDINE 20 MG TAB PO SCH (09:43)
[2017-12-10] MEDS: MAGNESIUM OXIDE 400 MG TAB PO SCH (09:43)
[2017-12-10] MEDS ORDERED: ASPirin 81 mg TAB PO SCH (10:00)
[2017-12-10] MEDS ORDERED: HYDR-4683 PO (10:05)
[2017-12-10] MEDS ORDERED: [UNRECOGNIZED DRUG - CODE] PO (10:05)
[2017-12-10] MEDS ORDERED: CAR3125T PO (10:05)
[2017-12-10 10:50] VITALS: BP 106/80
== END 2017-12-10 11:30 | disposition home or self-care (01) | DRG 161 ==
LOC: ER 17:34 → TELE 17:35 → TELE-CENTR 12-05 08:09
PROVIDERS: ADMIT Nurse Practitioner; ATTEND Internal Medicine
PROC: 0JH609Z Insertion of Cardiac Resynchronization Defibrillator Pulse Generator into Chest Subcutaneous Tissue and Fascia, Open Approach (ICD-10-PCS; principal; 2017-12-09)
PROC: 02HK3KZ Insertion of Defibrillator Lead into Right Ventricle, Percutaneous Approach (ICD-10-PCS; 2017-12-09)
PROC: 02H63KZ Insertion of Defibrillator Lead into Right Atrium, Percutaneous Approach (ICD-10-PCS; 2017-12-09)
PROC: 02HL3KZ Insertion of Defibrillator Lead into Left Ventricle, Percutaneous Approach (ICD-10-PCS; 2017-12-09)
DX: I11.0 Hypertensive heart disease with heart failure (principal); N17.0 Acute kidney failure with tubular necrosis; I42.0 Dilated cardiomyopathy; I50.23 Acute on chronic systolic (congestive) heart failure; Z95.1 Presence of aortocoronary bypass graft; E78.5 Hyperlipidemia, unspecified; E66.9 Obesity, unspecified; F17.210 Nicotine dependence, cigarettes, uncomplicated; R74.8 Abnormal levels of other serum enzymes; I25.10 Atherosclerotic heart disease of native coronary artery without angina pectoris; I25.5 Ischemic cardiomyopathy; J44.9 Chronic obstructive pulmonary disease, unspecified; Z86.79 Personal history of other diseases of the circulatory system; Z68.32 Body mass index [BMI] 32.0-32.9, adult; Z79.899 Other long term (current) drug therapy; Z90.49 Acquired absence of other specified parts of digestive tract; Z82.49 Family history of ischemic heart disease and other diseases of the circulatory system; Z71.3 Dietary counseling and surveillance
CPT/HCPCS: 33249; 36415; 71045; 80048; 80053; 81001; 83735; 83880; 84484; 85025; 85610; 85730; 86850; 86900; 86901; 87081; 93005; 96374; 96375; 99152; 99153; C1769; J0461; J0690; J2250; J2405

== ENCOUNTER 2017-12-21 23:08 | Inpatient (IN) | payer MEDICAID ==
[~2017-12-21] VITALS: Ht 175.3 cm; Wt 102.2 kg
[~2017-12-21 23:08] MED LIST changes: +HYDR-4683 PO
[2017-12-21 23:41] LABS: Basophils # (auto) 0.1 uL; Basophils % (auto) 1.5 % (0.0-2.0); Eosinophils # (auto) 0 uL; Eosinophils % (auto) 0.5 % (0.0-7.0); Hematocrit 40.4 % (41.0-53.0); Lymphocytes # (auto) 1.2 uL; Lymphocytes % (auto) 21.3 % (10.0-50.0); Mean Corpuscular Hemoglobin 29.7 pg (28.0-32.0); Mean Corpuscular Hgb Conc. 32.2 g/dL (32.0-36.0); Mean Corpuscular Volume 92.2 fL (80.0-100.0); Monocytes # (auto) 0.4 uL; Monocytes % (auto) 7.7 % (0.0-12.0); Neutrophils # (auto) 3.8 uL; Nucleated Red Blood Cells % 0.2 %; Platelet Count (auto) 260 10^3/uL (140-450); Red Blood Cells 4.38 10^6/uL (4.5-5.90); Red Cell Distribution Width 14.1 % (11.8-14.3); White Blood Cell 5.5 10^3/uL (4.4-10.8)
[2017-12-21 23:59] LABS: Albumin 3.7 g/dL (3.4-5.0); BUN/Creatinine Ratio 11.7; Calcium 8.4 mg/dL (8.5-10.1); Magnesium 1.7 mg/dL (1.6-2.6); Potassium 4.2 mmol/L (3.5-5.1)
[2017-12-22 00:03] LABS: Bilirubin, Total 1.5 mg/dL (0.2-1.0); Total Protein 6.9 g/dL (6.4-8.2)
[2017-12-22] MEDS ORDERED: FUROSEMIDE 20 MG/2 ML VIAL IV ONE (03:15)
[2017-12-22] MEDS ORDERED: ONDANSETRON HCL 4 MG/2 ML VIAL IV PRN (03:30)
[2017-12-22] MEDS ORDERED: ACETAMINOPHEN 500 MG TAB PO PRN (03:30)
[2017-12-22 04:08] LABS: Urine WBC None Seen /hpf (0 - 3)
[2017-12-22 04:18] LABS: Urine Bacteria NONE SEEN /hpf (None Seen); Urine Blood Negative /uL (Negative); Urine Mucus FEW (None Seen); Urine Specific Gravity 1.011 (1.001-1.035)
[2017-12-22 04:30] VITALS: BP 118/85
[2017-12-22 04:45] VITALS: BP 118/85
[2017-12-22] MEDS: CARVEDILOL 3.125 MG TAB PO SCH ×2 (08:44→20:07)
[2017-12-22] MEDS: LISINOPRIL 5 MG TAB PO SCH (08:45)
[2017-12-22] MEDS: FUROSEMIDE 40 MG/4 ML VIAL IV SCH (08:45)
[2017-12-22 08:50] LABS: Basophils # (auto) 0 uL; Eosinophils # (auto) 0.1 uL; Eosinophils % (auto) 1.3 % (0.0-7.0); Hematocrit 39.1 % (41.0-53.0); Hemoglobin 12.7 g/dL (13.5-17.5); Mean Corpuscular Hemoglobin 29.4 pg (28.0-32.0); Mean Corpuscular Hgb Conc. 32.6 g/dL (32.0-36.0); Mean Corpuscular Volume 90.3 fL (80.0-100.0); Monocytes # (auto) 0.5 uL; Monocytes % (auto) 11.3 % (0.0-12.0); Neutrophils # (auto) 2.5 uL; Neutrophils % (auto) 61.4 % (37.0-80.0); Nucleated Red Blood Cells % 0.3 %; Platelet Count (auto) 241 10^3/uL (140-450); Red Blood Cells 4.33 10^6/uL (4.5-5.90); Red Cell Distribution Width 13.9 % (11.8-14.3); White Blood Cell 4.1 10^3/uL (4.4-10.8)
[2017-12-22 09:00] VITALS: BP 101/71
[2017-12-22 09:03] LABS: BUN/Creatinine Ratio 13.1; Calcium 8.1 mg/dL (8.5-10.1); Potassium 3.9 mmol/L (3.5-5.1)
[2017-12-22 13:00] VITALS: BP 94/61
[2017-12-22 17:00] VITALS: BP 95/68
[2017-12-22] MEDS: HYDROcodone-ACET 5/325MG TAB PO PRN (20:07)
[2017-12-22 22:00] VITALS: BP 97/72
[2017-12-22] MEDS ORDERED: ATORVASTATIN 20 MG TAB PO SCH (22:00)
[2017-12-23 05:27] VITALS: BP 90/59
[2017-12-23 07:20] LABS: BUN/Creatinine Ratio 19.7; Calcium 8.1 mg/dL (8.5-10.1); Potassium 3.8 mmol/L (3.5-5.1)
[2017-12-23 08:30] VITALS: BP 119/70
[2017-12-23] MEDS: FUROSEMIDE 40 MG/4 ML VIAL IV SCH (09:01)
[2017-12-23] MEDS: CARVEDILOL 3.125 MG TAB PO SCH (09:01)
[2017-12-23] MEDS: LISINOPRIL 5 MG TAB PO SCH (09:02)
[2017-12-23] MEDS: HYDROcodone-ACET 5/325MG TAB PO PRN (09:03)
[2017-12-23 13:01] VITALS: BP 109/73
[2017-12-23] MEDS ORDERED: FURO20TA3 PO (13:18)
[2017-12-23] MEDS ORDERED: CARV6.25 PO (13:18)
[2017-12-23] MEDS ORDERED: POTA10TA34 PO (13:18)
[2017-12-23] MEDS ORDERED: ATOR20TA50 PO (13:18)
== END 2017-12-23 15:15 | disposition home or self-care (01) | DRG 194 ==
LOC: ER 23:09 → TELE 23:10 → TELE-WESTW 12-22 04:30
PROVIDERS: ADMIT Nurse Practitioner Family; ATTEND Internal Medicine
DX: I11.0 Hypertensive heart disease with heart failure (principal); E66.01 Morbid (severe) obesity due to excess calories; I42.0 Dilated cardiomyopathy; K72.90 Hepatic failure, unspecified without coma; I50.43 Acute on chronic combined systolic (congestive) and diastolic (congestive) heart failure; N28.9 Disorder of kidney and ureter, unspecified; I25.10 Atherosclerotic heart disease of native coronary artery without angina pectoris; Z68.33 Body mass index [BMI] 33.0-33.9, adult; Z82.3 Family history of stroke; Z82.49 Family history of ischemic heart disease and other diseases of the circulatory system; Z95.810 Presence of automatic (implantable) cardiac defibrillator; Z22.322 Carrier or suspected carrier of Methicillin resistant Staphylococcus aureus
CPT/HCPCS: 36415; 71045; 80048; 80053; 81001; 83735; 83880; 84484; 85025; 87081; 93005; 96374

== ENCOUNTER 2019-03-04 03:49 | Inpatient (IN) | payer MEDICAID ==
[~2019-03-04] VITALS: Ht 175.3 cm; Wt 105.2 kg
[~2019-03-04 03:49] MED LIST changes: +ATOR20TA50 PO; -CAR3125T PO; +CARV6.25 PO; +FURO20TA3 PO; +POTA1TAB61 PO
[2019-03-04] MEDS ORDERED: ALBUTEROL SULF 2.5 MG/0.5ML(0.5%) NEB SOLN NEB STA (04:06)
[2019-03-04] MEDS ORDERED: IPRATROPIUM BROM 0.5 MG/2.5ML INH SOL NEB ONE (04:15)
[2019-03-04] MEDS ORDERED: MORPHINE SULF INJ 2 MG/ML SYRINGE 1ML IV ONE (05:30)
[2019-03-04] MEDS ORDERED: ONDANSETRON HCL 4 MG/2 ML VIAL IV ONE (05:30)
[2019-03-04] MEDS ORDERED: SODIUM CHLORIDE 0.9% 1,000 ML IV ONE (07:24)
[2019-03-04] MEDS ORDERED: SPIRONOLACTONE 25 MG TAB PO ONE ×2 (07:30)
[2019-03-04] MEDS ORDERED: FUROSEMIDE 40 MG/4 ML VIAL IV ONE (07:30)
[2019-03-04 08:09] LABS: Basophils # (auto) 0.1 uL; Basophils % (auto) 1.6 % (0.0-2.0); Eosinophils # (auto) 0.1 uL; Eosinophils % (auto) 2.6 % (0.0-7.0); Hematocrit 39.1 % (41.0-53.0); Hemoglobin 12.8 g/dL (13.5-17.5); Lymphocytes # (auto) 1.5 uL; Lymphocytes % (auto) 42.5 % (10.0-50.0); Mean Corpuscular Hemoglobin 29.3 pg (28.0-32.0); Mean Corpuscular Hgb Conc. 32.7 g/dL (32.0-36.0); Mean Corpuscular Volume 89.5 fL (80.0-100.0); Monocytes # (auto) 0.5 uL; Monocytes % (auto) 13.9 % (0.0-12.0); Neutrophils # (auto) 1.4 uL; Neutrophils % (auto) 39.4 % (37.0-80.0); Nucleated Red Blood Cells % 0.6 %; Platelet Count (auto) 211 10^3/uL (140-450); Red Blood Cells 4.36 10^6/uL (4.5-5.90); Red Cell Distribution Width 13.4 % (11.8-14.3); White Blood Cell 3.5 10^3/uL (4.4-10.8)
[2019-03-04 08:22] LABS: Partial Thromboplastin Time 24.3 sec (23.78-33.04); Prothrombin Time 10.7 sec (9.27-12.13)
[2019-03-04 08:32] LABS: Albumin 3.3 g/dL (3.4-5.0); Calcium 7.9 mg/dL (8.5-10.1); Potassium 3.7 mmol/L (3.5-5.1)
[2019-03-04 08:38] LABS: BUN/Creatinine Ratio 17.6; Bilirubin, Total 0.8 mg/dL (0.2-1.0); Total Protein 6.3 g/dL (6.4-8.2)
[2019-03-04 08:58] LABS: Urine Bacteria FEW /hpf (None Seen); Urine Blood Negative /uL (Negative); Urine WBC 2 /hpf (0 - 3)
[2019-03-04] MEDS ORDERED: PROMETHAZINE HCL 25 MG/ML 1ML IV PRN (13:00)
[2019-03-04] MEDS ORDERED: NITROGLYCERIN 0.4 MG SL TAB SL PRN (13:00)
[2019-03-04] MEDS ORDERED: MORPHINE SULF INJ 2 MG/ML SYRINGE 1ML IV PRN (13:00)
[2019-03-04] MEDS ORDERED: ACETAMINOPHEN 500 MG TAB PO PRN (13:00)
[2019-03-04] MEDS ORDERED: TEMAZEPAM 15 MG CAP PO PRN (13:00)
[2019-03-04] MEDS: ENOXAPARIN SOD 40 MG/0.4 ML SYRINGE SC SCH (13:51)
[2019-03-04] MEDS: SODIUM CHLOR 0.9% PF (SALINE LOCK) 10ML VIAL/SYR IV SCH ×2 (14:00→23:52)
[2019-03-04 14:17] LABS: Alcohol, Urine < 3.0 mg/dL (0-5); Amphetamine Screen, Urine NEGATIVE (NEGATIVE); Barbiturate Scree,Urine NEGATIVE (NEGATIVE); Benzodiazephine Screen, Urine NEGATIVE (NEGATIVE); Cannabinoid Screen, Urine NEGATIVE (NEGATIVE); Cocaine Screen, Urine NEGATIVE (NEGATIVE); Opiate Scree,Urine NEGATIVE (NEGATIVE); Phencyclidine Screen, Urine NEGATIVE (NEGATIVE)
--- NOTE | 2019-03-04 15:30 | NUR ---
Telemetry admit from ER GERMÁNROLANDA admitted to Telemetry unit after SBAR received. Patient oriented to Kiarra Crandall, primary RN, unit, room, bed, and unit policies regarding patient care and visiting hours. Patient now on continuous telemetry monitoring, tele box # 31 and telemetry reading on arrival to unit is SR 100 WITH PVC'S. Patient placed on bedside oxygen, weighed by bedscale and encouraged to call if they need something. All questions and concerns addressed, patient verbalized understanding. Note:
[2019-03-04 17:00] VITALS: BP 132/74
[2019-03-04] MEDS: traMADol HCL 50 MG TAB PO PRN ×2 (17:03→23:19)
--- NOTE | 2019-03-04 18:45 | NUR ---
RECEIVED A CALL FROM ALMITA RE: PT'S RUN OF VTACH PT CHECKED IN THE ROOM, RESTING. DENIES CHEST PAIN. VERBALIZED COMFORT.
--- NOTE | 2019-03-04 19:30 | NUR ---
REPORT GIVEN TO MITZI DE SOUZA RN. AP MADE AWARE OF PT'S 4 RUNS OF VTACH. WILL LET HOSPITALIST KNOW.
--- NOTE | 2019-03-04 20:02 | NUR ---
Praveena hospitalist. Will notify of patient having 4 beats of vtach at 1822. Cardiology consulted and has not seen the patient yet. No distress noted. Lying in bed watching TV. Will continue to monitor.Call light within reach
[2019-03-04 21:57] VITALS: BP 113/67
--- NOTE | 2019-03-04 22:45 | NUR ---
Dr. Dixon assessed patient. Shows tele strip from patient at 1820 with run of vtach, 4 beats. New orders will be carried out. Call light within reach
[2019-03-04] MEDS ORDERED: BUMETANIDE 1mg/4ml VIAL (0.25mg/ml) IV ONE (23:00)
[2019-03-04] MEDS: CARVEDILOL 3.125 MG TAB PO SCH (23:17)
[2019-03-04] MEDS: ATORVASTATIN 20 MG TAB PO SCH (23:18)
--- NOTE | 2019-03-05 | NUR ---
Orders for left heart cath. No date for procedure as of yet. Patient states "he told me Wednesday." No distress at this time. Call light within reach
[2019-03-05 05:36] VITALS: BP 110/65
[2019-03-05 06:09] LABS: Albumin 3.3 g/dL (3.4-5.0); Calcium 8.6 mg/dL (8.5-10.1); Potassium 4.3 mmol/L (3.5-5.1)
[2019-03-05 06:11] LABS: BUN/Creatinine Ratio 15.2
[2019-03-05 06:17] LABS: Total Protein 6.4 g/dL (6.4-8.2)
[2019-03-05] MEDS: CARVEDILOL 3.125 MG TAB PO SCH ×3 (06:32→23:00)
[2019-03-05] MEDS: SODIUM CHLOR 0.9% PF (SALINE LOCK) 10ML VIAL/SYR IV SCH ×3 (06:33→22:59)
--- NOTE | 2019-03-05 07:30 | NUR ---
Opening Shift Note Assumed care of patient, awake and alert. No S/S of distress/SOB or pain. Instructed on POC and to call for assist PRN, will continue to monitor for changes Q1hr and PRN.
[2019-03-05 09:21] VITALS: BP 81/49
--- NOTE | 2019-03-05 09:40 | NUR ---
Scheduled Meds Scheduled medication given to pt. See e-MAR for medications given during this visit. Pt tolerateD procedure well. With on-going patient education given on disease process and medication. PT STATED STILL FEELING SHORT OF BREATH. PT HEAD OF BED ELEVATED. OXYGEN ADJUSTED. PT VERBALIZED COMFORT.
[2019-03-05] MEDS: PANTOPRAZOLE 40 MG TAB PO SCH (09:46)
[2019-03-05] MEDS: ASPirin 81 mg TAB PO SCH (09:47)
[2019-03-05] MEDS: POTASSIUM CHL 20 Meq TABLET PO SCH (09:47)
[2019-03-05] MEDS: FUROSEMIDE 40 MG/4 ML VIAL IV SCH (09:47)
[2019-03-05] MEDS: ENOXAPARIN SOD 40 MG/0.4 ML SYRINGE SC SCH (09:54)
[2019-03-05] MEDS: RAMIPRIL 2.5 MG CAP PO SCH (10:00)
[2019-03-05] MEDS: NITROGLYCERIN 0.2MG/HR TOPICAL PATCH TD SCH (10:00)
[2019-03-05] MEDS: HYDROcodone-ACET 10/325MG TAB PO PRN ×2 (12:27→20:11)
[2019-03-05] MEDS: LACTULOSE 20Gm/30ML SOLN PO PRN (12:28)
--- NOTE | 2019-03-05 13:00 | NUR ---
IV removal IV FOUND TO BE LEAKING. DC'd with clean sterile technique, catheter fully intact. Pressure dressing applied to site. Patient tolerated well. NOTE:
[2019-03-05 13:11] VITALS: BP 88/70
--- NOTE | 2019-03-05 13:40 | NUR ---
IV insertion IV access obtained, via clean sterile technique by inserting 20 gauge catheter at LEFT FOREARM after 1 attempt(s). IV secured properly. No trauma to site. Patient tolerated well. NOTE:
[2019-03-05] MEDS ORDERED: LORazepam 0.5 MG TAB PO PRN (14:00)
--- NOTE | 2019-03-05 14:00 | NUR ---
CONSENTS FOR LEFT HEART CATH SIGNED AND FILED.
[2019-03-05] MEDS: ALBUMIN 25% 100 ML IV SCH ×2 (15:55→17:22)
--- NOTE | 2019-03-05 16:00 | NUR ---
PT NOTES PT ENCOURAGED TO AMBULATE IN THE HALLWAY. PT VERBALIZED AGREEMENT. A WALKER WAS REQUESTED FROM PHYSICAL THERAPY DEPT. WALKER IS NOW AT BEDSIDE AND PT STATED HE WILL AMBULATE AFTER DINNER. Addendum: 03/05/19 at 1850 by Kiarra Crandall RN ADDENDUM PT CAN AMBULATE WITHOUT ASSISTANCE OR WALKER IN SHORT DISTANCE BUT ASKED FOR A WALKER TO WALK IN THE HALLWAY.
[2019-03-05 16:59] VITALS: BP 101/72
--- NOTE | 2019-03-05 17:51 | NUR ---
Rounds Patient awake and alert. No S/S of distress/SOB or pain. PT DENIES PAIN OR SOB AT THIS TIME. VERBALIZED FEELING MUCH BETTER AND BREATHING BETTER. Will continue to monitor changes q1hr and PRN.
[2019-03-05] MEDS ORDERED: BUMETANIDE 2.5mg/10ml (0.25 mg/ml) INJ IV ONE (19:00)
--- NOTE | 2019-03-05 19:22 | NUR ---
Run of SVT per ALMITA: Received call from Sathya [facility] county program technician about a 6-7 sec run of SVT. Patient has an AICD history for SVT per Dr. Ambrose progress notes. Patient asymptomatic; no chest pain. Will continue to monitor.
--- NOTE | 2019-03-05 19:45 | NUR ---
Opening Shift Note: A&Ox4, resting in bed. Currently on room air but very SOB; O2 level in the 70s-80s. Placed on 3LO2 via NC with O2 saturation in mid to high 90s. Pain level 8/10 acute in lower back; baseline: ambulation independently with a cane; currently SBA with a walker for extended distances. Bed locked in lowest position, side rails up x2, and call light within reach. 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 Strict I/O per order. IV 20 g in left forearm IID inserted on 03/05/19. Skin intact. Patient will be NPO at 0000 for [facility] with Dr. Ambrose at 1030 on 03/06/19. Consents signed and placed in patient's hard chart. POC discussed and questions answered. Will continue to round prn.
--- NOTE | 2019-03-05 20:45 | NUR ---
Ambulation: Patient ambulated in the hallway with walker and SBA. Placed on 3LO via NC when ambulating. Patient asymptomatic throughout walk.
[2019-03-05 22:05] VITALS: BP 116/81
[2019-03-05] MEDS: ATORVASTATIN 20 MG TAB PO SCH (23:00)
[2019-03-05] MEDS: ACETYLCYSTEINE ORAL for CIN 20%(200MG/ML) 4ML PO SCH (23:01)
--- NOTE | 2019-03-06 | NUR ---
NPO for [facility] with Dr. Ambrose at 1030 on 03/06/19.
--- NOTE | 2019-03-06 02:00 | NUR ---
Page sent to passenger conductor hospitalist in regards to patient's constipation. No BM since 03/01/19 and patient is in pain and states distention and bloating. Will await page return for possible new orders.
--- NOTE | 2019-03-06 03:03 | NUR ---
Page return: Per material handler floorperson hospitalist, Wilmer Ferrara, x1 order for fleets enema for constipation.
[2019-03-06] MEDS ORDERED: FLEET ENEMA(ADULT) 135 ML PR ONE ×2 (03:15→15:00)
--- NOTE | 2019-03-06 05:02 | NUR ---
Page sent to on-call hospitalist in regards to ineffective fleets enema.
--- NOTE | 2019-03-06 05:15 | NUR ---
Page return: Per on-call hospitalist, Isrrael Ferrara, Administer one tap water enema for severe constipation.
[2019-03-06 05:37] LABS: Potassium 3.9 mmol/L (3.5-5.1)
[2019-03-06 05:44] LABS: BUN/Creatinine Ratio 19.2; Calcium 8.8 mg/dL (8.5-10.1)
[2019-03-06 05:50] VITALS: BP 95/67
--- NOTE | 2019-03-06 05:58 | NUR ---
Tap water enema: Tap water enema with 500ml administered. Patient instructed to retain the fluid as long as tolerable and to use the restroom when he feels the urge to have a bowel movement. Patient tolerated well.
--- NOTE | 2019-03-06 07:40 | NUR ---
OPENING SHIFT NOTE ASSUMED CARE OF PATIENT. PATIENT IS A&OX4, HOB GREATER THAN 30 DEGREES WITH O2 AT 3L NC. PATIENT HAS NO C/O PAIN OR SOB, BEDRAILS UP X2, BED BRAKE ON, CONTINUING TO MONITOR PATIENT Q1 HOUR
--- NOTE | 2019-03-06 08:05 | NUR ---
TRANSPORT PATIENT TRANSPORTED TO LAUNDRY TECHNICIAN FOR PENDING PROCEDURE
--- NOTE | 2019-03-06 08:56 | NUR ---
MRSA SWAB RECEIVED RESULTS FROM CLEMENT MACIEL IN [facility] THAT PATIENTS MRSA SWAB RESULTS WERE POSITIVE IN THE NARES
[2019-03-06] MEDS ORDERED: IODIXANOL 320MG/ML 100ML BTL IV ONE (08:58)
[2019-03-06] MEDS ORDERED: LIDOCAINE 2%HCL (LOCAL ANESTH.) INJ 20ML MDV ONE (08:58)
[2019-03-06 09:00] VITALS: BP 120/57
[2019-03-06] MEDS ORDERED: MIDAZOLAM HCL 1MG/1ML-2 ML VIAL ONE (09:13)
[2019-03-06] MEDS ORDERED: VERAPAMIL 2.5MG/ML INJ 2ML VIAL IV ONE (09:13)
[2019-03-06] MEDS ORDERED: fentaNYL CITRATE 100 MCG/2 ML VL ONE (09:13)
[2019-03-06] MEDS ORDERED: ANGIOMAX 250 MG VIAL IV ONE (09:13)
[2019-03-06] MEDS ORDERED: SODIUM CHL 0.9% 0 ML ONE (09:14)
[2019-03-06] MEDS ORDERED: HEPARIN SODIUM (PORCINE) 5000 UNITS/ML 1ML VIAL ONE (09:59)
[2019-03-06] MEDS: ENOXAPARIN SOD 40 MG/0.4 ML SYRINGE SC SCH (10:00)
--- NOTE | 2019-03-06 10:50 | NUR ---
OFF UNIT PATIENT REMAINS OFF UNIT IN [employer]
--- NOTE | 2019-03-06 11:45 | NUR ---
RETURN TO UNIT PATIENT RETURNED TO UNIT, INSTRUCTIONS ON VASC BAND REMOVAL RECEIVED, 2 ML OF AIR REMOVED Q 15 MINUTES
[2019-03-06] MEDS: FUROSEMIDE 40 MG/4 ML VIAL IV SCH (12:15)
[2019-03-06] MEDS: PANTOPRAZOLE 40 MG TAB PO SCH (12:16)
[2019-03-06] MEDS: ASPirin 81 mg TAB PO SCH (12:16)
[2019-03-06] MEDS: POTASSIUM CHL 20 Meq TABLET PO SCH (12:16)
[2019-03-06] MEDS: NITROGLYCERIN 0.2MG/HR TOPICAL PATCH TD SCH (12:18)
[2019-03-06] MEDS: SODIUM CHLOR 0.9% PF (SALINE LOCK) 10ML VIAL/SYR IV SCH ×3 (12:21→22:36)
[2019-03-06 13:00] VITALS: BP 102/74
[2019-03-06] MEDS: RAMIPRIL 2.5 MG CAP PO SCH (13:00)
[2019-03-06] MEDS: LACTULOSE 20Gm/30ML SOLN PO PRN (13:01)
[2019-03-06] MEDS: ACETYLCYSTEINE ORAL for CIN 20%(200MG/ML) 4ML PO SCH ×2 (13:01→22:39)
[2019-03-06] MEDS: HYDROcodone-ACET 10/325MG TAB PO PRN ×2 (13:02→20:13)
--- NOTE | 2019-03-06 16:06 | NUR ---
FLEET ENEMA PATIENT REQUESTS TO SELF ADMINISTER FLEET ENEMA
[2019-03-06 17:00] VITALS: BP 94/69
--- NOTE | 2019-03-06 17:15 | NUR ---
patient ambulated halls with myself for one full lap around the unit. pt was wearing 3l nc and walker with a walker. gait was steady with only stand by assist. patient tolerated well.
--- NOTE | 2019-03-06 18:54 | NUR ---
VASC BAND REMOVED AT THIS TIME, NO BLEEDING PRESENT, NO HEMATOMA NOTED, COVERED WITH GAUZE AND APPLIED COBAND
--- NOTE | 2019-03-06 19:45 | NUR ---
OPENING SHIFT NOTE; Assumed care of patient. A&Ox4. Patient is sitting at edge of bed at this time. Nasal cannula currently not on and patient c/o SOB. Instructed patient to replace nasal canula. Spo2 95% with 3lpm via NC. Incision to right wrist from left heart cath performed today is clean and dry. Patient denies pain and no bleeding or hematoma is noted. Patient provided with PRN pain medication due to c/o 8/10 lower back pain. discussed POC with patient, who verbalizes understanding. Bed left in low locked position and call light is within reach. Patient instructed to call for assistance if needed. Will continue to monitor PRN.
[2019-03-06 22:00] VITALS: BP 109/74
[2019-03-06] MEDS: MUPIROCIN 2% OINT 15gm or 22gm EACHNOSTRI SCH (22:36)
[2019-03-06] MEDS: CARVEDILOL 3.125 MG TAB PO SCH (22:38)
[2019-03-06] MEDS: ATORVASTATIN 20 MG TAB PO SCH (22:38)
--- NOTE | 2019-03-06 22:39 | NUR ---
IV CATHETER INSERTION 20 gauge IV inserted into right hand. Secured and flushed with NS. Patient tolerates well.
--- NOTE | 2019-03-06 22:45 | NUR ---
IV CATHETER REMOVAL IV to left forearm leaking. Patient reports pain with flushing. IV removed after placing 20 gauge IV in right hand. Catheter tip is intact. Insertion site covered with 4x4 gauze and secured with Coban. Patient tolerated well.
[2019-03-07] MEDS: LACTULOSE 20Gm/30ML SOLN PO PRN ×2 (01:14→09:55)
[2019-03-07] MEDS: HYDROcodone-ACET 10/325MG TAB PO PRN ×2 (01:15→09:55)
--- NOTE | 2019-03-07 02:11 | NUR ---
RUN OF VTACH Recieved call from [employer] reporting a 6 beat run of VTACH. patient is sitting up in bed with noted labored breathing. Denies chest pain but reports SOB. Spo2 88% on 3lpm. Patient instructed to breathe through his nose and sit up in bed. Will continue to monitor.
[2019-03-07 04:57] VITALS: BP 108/72
[2019-03-07] MEDS: SODIUM CHLOR 0.9% PF (SALINE LOCK) 10ML VIAL/SYR IV SCH (07:10)
--- NOTE | 2019-03-07 07:10 | NUR ---
OPENING SHIFT NOTE ASSUMED CARE OF PATIENT, PATIENT RESTING IN BED ON 3L NC, NO C/O PAIN AT THIS TIME. BED IN LOW POSITION, LOCKED, BED RAILS UP X 2. EDUCATED PATIENT ON POC FOR TODAY, PATIENT VERBALIZED UNDERSTANDING
[2019-03-07 07:35] LABS: BUN/Creatinine Ratio 22.9; Calcium 8.5 mg/dL (8.5-10.1)
--- NOTE | 2019-03-07 09:22 | NUR ---
DR AT BEDSIDE DR JASON AND MYSELF ROUND ON PATIENT
[2019-03-07] MEDS: MUPIROCIN 2% OINT 15gm or 22gm EACHNOSTRI SCH (09:49)
[2019-03-07] MEDS: ACETYLCYSTEINE ORAL for CIN 20%(200MG/ML) 4ML PO SCH (09:49)
[2019-03-07] MEDS: CARVEDILOL 3.125 MG TAB PO SCH (09:50)
[2019-03-07] MEDS: PANTOPRAZOLE 40 MG TAB PO SCH (09:51)
[2019-03-07] MEDS: FUROSEMIDE 40 MG/4 ML VIAL IV SCH (09:51)
[2019-03-07] MEDS ORDERED: MUPI2OIN2 EACHNOSTRI (09:52)
[2019-03-07] MEDS: ASPirin 81 mg TAB PO SCH (09:53)
[2019-03-07] MEDS: ENOXAPARIN SOD 40 MG/0.4 ML SYRINGE SC SCH (09:54)
[2019-03-07] MEDS: RAMIPRIL 2.5 MG CAP PO SCH (09:54)
[2019-03-07] MEDS: POTASSIUM CHL 20 Meq TABLET PO SCH (09:54)
[2019-03-07 12:26] VITALS: BP 108/72
[2019-03-07 13:00] VITALS: BP 95/66
--- NOTE | 2019-03-07 13:00 | NUR ---
OXYGEN SATURATION O2 Saturation on room air 95%. No SOB.
--- NOTE | 2019-03-07 14:26 | NUR ---
TA[employer] V[employer]CHER Patient stated he did not have transportation home and requested assistance. Patient transported home with taxi voucher as requested.
--- NOTE | 2019-03-07 14:27 | NUR ---
Discharge instructions given as ordered. Encourage to follow up with PMD as instructed. All questions and concerns addressed. Patient verbalized understanding. Medication reconciliation form completed and copy given to patient. IV removed by Anel BANSAL with catheter intact, pressure dressing applied. Vital signs stable. Telemetry unit returned to ICU. Patient taken to vehicle via wheelchair with all personal belongings, accompanied by staff and family member. No distress noted at time of departure.
== END 2019-03-07 14:26 | disposition home or self-care (01) | DRG 190 ==
LOC: ER 03:49 → EDBD 03:49 → TELE 13:07 → TELE-WESTW 15:30
PROVIDERS: ADMIT Internal Medicine; ATTEND Internal Medicine
PROC: 4A023N7 Measurement of Cardiac Sampling and Pressure, Left Heart, Percutaneous Approach (ICD-10-PCS; principal; 2019-03-06)
PROC: B2111ZZ Fluoroscopy of Multiple Coronary Arteries using Low Osmolar Contrast (ICD-10-PCS; 2019-03-06)
DX: I21.4 Non-ST elevation (NSTEMI) myocardial infarction (principal); J96.00 Acute respiratory failure, unspecified whether with hypoxia or hypercapnia; I50.23 Acute on chronic systolic (congestive) heart failure; N17.9 Acute kidney failure, unspecified; I42.9 Cardiomyopathy, unspecified; E44.1 Mild protein-calorie malnutrition; E78.5 Hyperlipidemia, unspecified; J44.9 Chronic obstructive pulmonary disease, unspecified; F41.9 Anxiety disorder, unspecified; E66.9 Obesity, unspecified; K59.00 Constipation, unspecified; N18.9 Chronic kidney disease, unspecified; I13.0 Hypertensive heart and chronic kidney disease with heart failure and stage 1 through stage 4 chronic kidney disease, or unspecified chronic kidney disease; I25.2 Old myocardial infarction; Z82.3 Family history of stroke; Z82.49 Family history of ischemic heart disease and other diseases of the circulatory system; Z83.3 Family history of diabetes mellitus; Z95.810 Presence of automatic (implantable) cardiac defibrillator; Z22.322 Carrier or suspected carrier of Methicillin resistant Staphylococcus aureus; Z90.49 Acquired absence of other specified parts of digestive tract; Z79.899 Other long term (current) drug therapy; Z79.82 Long term (current) use of aspirin
CPT/HCPCS: 36415; 36600; 71045; 80048; 80053; 80307; 81001; 82805; 83880; 84443; 84484; 85025; 85610; 85730; 87081; 87086; 93005; 93306; 93458; 94640; 94761; 96361; 96372; 96374; 96375; 99152; G0378; J2250; J2405; P9047; Q9967